=== PATIENT | female | born 1960 | race African-American/Black ===

== ENCOUNTER 2017-08-12 05:09 | Emergency (ER) | payer OTHER ==
[~2017-08-12 05:09] MED LIST: HYDR-3533 PO; IBUP-232 PO; LISI-586 PO; LISI40TA PO; ROBA750T PO; ROBA750T3 PO; SYMB80AE INH
[2017-08-12 05:12] VITALS: BP 184/86; PULSE 82; RESP 18; TEMP 98.2; O2SAT 98
[2017-08-12] MEDS ORDERED: methylPREDNISolone SOD SUCC 125 MG/2 ML VIAL IV PUSH ONE (05:45)
[2017-08-12] MEDS ORDERED: RESP: ALBUTEROL 2.5 MG/IPRATROPIUM 0.5 MG NEB (SCH) NEB ONE (05:45)
[2017-08-12 06:02] VITALS: O2SAT 98
[2017-08-12 06:12] LABS: BASOPHIL # 0.1 TH/MM3 (0-0.2); BASOPHIL % 1.1 % (0.0-2.0); EOSINOPHIL # 0.2 TH/MM3 (0-0.4); EOSINOPHIL % 3.3 % (0.0-4.0); HEMATOCRIT 34.2 % (35.0-46.0); HEMOGLOBIN 11.4 GM/DL (11.6-15.3); LYMPH % 42.7 % (9.0-44.0); LYMPHOCYTE # 2.1 TH/MM3 (1.0-4.8); MEAN CELL VOLUME 94.3 FL (80.0-100.0); MEAN CORPUSCULAR HEMOGLOBIN 31.5 PG (27.0-34.0); MEAN CORPUSCULAR HGB CONC 33.4 % (32.0-36.0); MONO % 11.9 % (0.0-8.0); MONOCYTE # 0.6 TH/MM3 (0-0.9); PLATELET COUNT 233 TH/MM3 (150-450); RED BLOOD COUNT 3.63 MIL/MM3 (4.00-5.30); RED CELL DISTRIBUTION WIDTH 13.8 % (11.6-17.2); WHITE BLOOD COUNT 4.9 TH/MM3 (4.0-11.0)
[2017-08-12 06:27] LABS: INTERNATIONAL NORMALIZED RATIO 1.1 RATIO; PROTHROMBIN TIME - PATIENT 11.5 SEC (9.8-11.6)
[2017-08-12 06:36] LABS: ALBUMIN 3.4 GM/DL (3.4-5.0); AST (GOT) 18 U/L (15-37); BICARBONATE 20.9 MEQ/L (21.0-32.0); BLOOD UREA NITROGEN 20 MG/DL (7-18); CALCIUM 9.2 MG/DL (8.5-10.1); CHLORIDE 108 MEQ/L (98-107); CREATININE 1.26 MG/DL (0.50-1.00); GLOMERULAR FILTRATION RATE 53 ML/MIN (>89); GLUCOSE,RANDOM 110 MG/DL (74-106); MAGNESIUM 2.2 MG/DL (1.5-2.5); SODIUM (NA) 141 MEQ/L (136-145)
[2017-08-12 06:38] LABS: ALT (GPT) 19 U/L (10-53)
[2017-08-12 06:41] LABS: ALKALINE PHOSPHATASE 75 U/L (45-117); TOTAL BILIRUBIN ADULT 0.6 MG/DL (0.2-1.0); TOTAL PROTEIN 7.5 GM/DL (6.4-8.2); TROPONIN I 0.02 NG/ML (0.02-0.05)
[2017-08-12] MEDS ORDERED: IOHEXOL 350 MG/ML 10 ML VIAL (for RAD DIAG) IVCONTRAST ONE (07:15)
--- NOTE | 2017-08-12 07:28 | PD ---
HPI Chief Complaint: Respiratory Symptoms Time Seen by Provider: 05:29 Travel History International Travel<30 days: No Contact w/Intl Traveler<30days: No Traveled to known affect area: No History of Present Illness HPI The patient is a 56 year old female who presents to the [facility] emergency department with a history of beginning to suddenly cough prior to arrival while she was sleeping. The cough woke her up. She reports that she then spent out some fluid that was blood-tinged. She denies having any vomiting. She reports having history of asthma. She had an episode of wheezing and shortness of breath and used her rescue inhaler x1 yesterday. She reports that she infrequently uses her rescue inhaler. The patient reports a history of smoking. She reports smoking a few cigarettes per day. The patient reports a history of cocaine use. She last used cocaine over the weekend. She denies having any chest pain or chest pressure. She denies having any. She denies having any productive cough prior to this. She denies having any known she denies having any congestion. She does have a prior history of pulmonary embolism. She is chronically anticoagulated on Coumadin. Approximately a week ago she did come off of the Coumadin for a period of time in order to have multiple teeth extracted. She reports that she is currently back on the Coumadin. One ROS otherwise, the patient denies having any neck pain, abdominal pain, vomiting, diarrhea, urinary symptoms, or neurologic symptoms. [facility] Past Medical History Narrative Medical The patient's past medical history is significant for PE, chronic anticoagulation on Coumadin, history asthma, tobacco use, cocaine use, hypertension Hx Anticoagulant Therapy: Yes Arthritis: Yes Asthma: Yes Blood Disorders: Yes (BLOOD CLOT IN LUNG 2005) Anxiety: Yes Diminished Hearing: No Hypertension: Yes Inguinal Hernia: Yes Respiratory: Yes (ASTHMA) Menopausal: Yes : 4 Para: 2 Ovarian Cysts: Yes Past Surgical History Narrative Surgical The patient's past surgical history is significant for umbilical hernia repair, shoulder sx. Abdominal Surgery: Yes (unbilical hernia) Joint Replacement: Yes (right shoulder) Social History Alcohol Use: Yes (3 BEERS A WEEK) Tobacco Use: Yes (1 PACK A MONTH ) Substance Use: Yes (cocaine use over last weekend) Allergies-Medications (Allergen,Severity, Reaction): Coded Allergies: Sulfa (Sulfonamide Antibiotics) (Unverified Allergy, Severe, Swelling, 08/12) ampicillin (Unverified Allergy, Severe, Swelling, 08/12/17) cephalexin (Unverified Allergy, Severe, 08/12/17) penicillin G (Unverified Allergy, Severe, Swelling, 08/12/17) latex (Unverified Allergy, Intermediate, Swelling, 08/12/17) aspirin (Unverified Allergy, Mild, Swelling, 08/12/17) Reported Meds & Prescriptions Reported Meds & Active Scripts Active Proair Hfa 8.5 GM Inh (Albuterol Sulfate) 90 Mcg/Act Aer 2 Puff INH Q4-6H PRN 108 mcg/actuation Prednisone 20 Mg Tab 20 Mg PO BID 5 Days Azithromycin 500 Mg Tab 500 Mg PO DAILY Robaxin (Methocarbamol) 750 Mg Tab 1,500 Mg PO TID Lortab (Hydrocodone-Acetaminophen) 5-325 Mg Tab 1 Tab PO Q6H PRN Ibuprofen 600 Mg Tab 600 Mg PO Q6H PRN Zestoretic 20/12.5 (Lisinopril/Hctz 20 mg/12.5 mg) 20 Mg/12.5 Mg Tab 1 Tab PO BID 30 Days Robaxin-750 (Methocarbamol) 750 Mg Tab 1,500 Mg PO TID PRN Reported Symbicort (Budesonide/Formoterol Fumarate) 80 Mcg/4.5 Mcg Aer 2 Puff INH BID * SHAKE WELL BEFORE USE * Prinivil 40 mg (Lisinopril) 40 Mg Tab 1 Tab PO DAILY Review of Systems Except as stated in HPI: all other systems reviewed are Neg General / Constitutional: No: Fever Eyes: No: Visual changes HENT: Positive: Sore Throat, Neck Pain, No: Headaches, Neck Stiffness Cardiovascular: No: Chest Pain or Discomfort Respiratory: Positive: Cough, Shortness of Breath, Wheezing, Hemoptysis Gastrointestinal: No: Abdominal Pain Genitourinary: No: Dysuria Musculoskeletal: No: Pain Skin: No Rash Neurologic: No: Weakness Psychiatric: No: Depression Endocrine: No: Polydipsia Hematologic/Lymphatic: No: Easy Bruising Physical Exam Narrative General: The patient is a well-developed well-nourished female in no acute distress. Head and Neck exam: Head is normocephalic atraumatic. Eyes: EOMI, pupils are equal round and reactive to light. Nose: Midline septum with pink mucous membranes Mouth: Dentition unremarkable. Moist mucus membranes. Posterior oropharynx is not erythematous, except on the patient's uvula. The patient's uvula is noted to be in midline, mildly edematous. On the right side of the uvula the patient is noted to have an area of what appears to be recent bleeding. No tonsillar hypertrophy. Airway patent. Neck: No palpable lymphadenopathy. No nuchal rigidity. No thyromegaly. Cardiovascular: Regular rate and rhythm without murmurs, gallops, or rubs. No pulse deficit to the extremities on simultaneous auscultation and palpation of her radial artery. Lungs: Clear to auscultation bilaterally. No wheezes, rhonchi, or rales. Abdomen: Soft, without tenderness to palpation in all 4 quadrants of the abdomen. No guarding, rebound, or rigidity. Normal bowel sounds are audible. No tenderness on palpation of McBurney's point. Extremities: No clubbing, cyanosis, or edema. 2+ pulses in all 4 extremities. No calf tenderness on palpation. Back: No spinous process tenderness to palpation. No costovertebral angle tenderness to palpation. Neurologic Exam: Grossly nonfocal. Skin Exam: No rash noted. Intact skin that is warm and dry. Data Data Last Documented VS Vital Signs Date Time Temp Pulse Resp B/P (MAP) Pulse Ox O2 Delivery O2 Flow Rate FiO2 08/12/17 10:00 64 16 97 Room Air 08/12/17 06:02 21 08/12/17 05:12 98.2 184/86 (118) Orders Orders Complete Blood Count With Diff (08/12/17 05:30) Comprehensive Metabolic Panel (08/12/17 05:30) Creatine Kinase (Cpk) (08/12/17 05:30) Ckmb (Isoenzyme) Profile (08/12/17 05:30) Troponin I (08/12/17 05:30) B-Type Natriuretic Peptide (08/12/17 05:30) Prothrombin Time / Inr (Pt) (08/12/17 05:30) Act Partial Throm Time (Ptt) (08/12/17 05:30) Lipase (08/12/17 05:30) Magnesium (Mg) (08/12/17 05:30) Iv Access Insert/Monitor (08/12/17 05:30) Ecg Monitoring (08/12/17 05:30) Oximetry (08/12/17 05:30) Ct Pulmonary Angiogram (08/12/17 05:30) Methylprednisolone So Succ Inj (Solumedr (08/12/17 05:45) Albuterol-Ipratropium Neb (Duoneb Neb) (08/12/17 05:45) CKMB (08/12/17 06:05) CKMB% (08/12/17 06:05) Iohexol 350 Inj (Omnipaque 350 Inj) (08/12/17 07:15) Electrocardiogram (08/12/17 05:55) Acetaminophen (Tylenol) (08/12/17 09:30) Azithromycin (Zithromax) (08/12/17 09:30) Ed Discharge Order (08/12/17 10:16) Labs Laboratory Tests Test 08/12/17 06:05 White Blood Count 4.9 TH/MM3 Red Blood Count 3.63 MIL/MM3 Hemoglobin 11.4 GM/DL Hematocrit 34.2 % Mean Corpuscular Volume 94.3 FL Mean Corpuscular Hemoglobin 31.5 PG Mean Corpuscular Hemoglobin Concent 33.4 % Red Cell Distribution Width 13.8 % Platelet Count 233 TH/MM3 Mean Platelet Volume 8.0 FL Neutrophils (%) (Auto) 41.0 % Lymphocytes (%) (Auto) 42.7 % Monocytes (%) (Auto) 11.9 % Eosinophils (%) (Auto) 3.3 % Basophils (%) (Auto) 1.1 % Neutrophils # (Auto) 2.0 TH/MM3 Lymphocytes # (Auto) 2.1 TH/MM3 Monocytes # (Auto) 0.6 TH/MM3 Eosinophils # (Auto) 0.2 TH/MM3 Basophils # (Auto) 0.1 TH/MM3 CBC Comment DIFF FINAL Differential Comment Prothrombin Time 11.5 SEC Prothromb Time International Ratio 1.1 RATIO Activated Partial Thromboplast Time 25.4 SEC Blood Urea Nitrogen 20 MG/DL Creatinine 1.26 MG/DL Random Glucose 110 MG/DL Total Protein 7.5 GM/DL Albumin 3.4 GM/DL Calcium Level 9.2 MG/DL Magnesium Level 2.2 MG/DL Alkaline Phosphatase 75 U/L Aspartate Amino Transf (AST/SGOT) 18 U/L Alanine Aminotransferase (ALT/SGPT) 19 U/L Total Bilirubin 0.6 MG/DL Sodium Level 141 MEQ/L Potassium Level 3.5 MEQ/L Chloride Level 108 MEQ/L Carbon Dioxide Level 20.9 MEQ/L Anion Gap 12 MEQ/L Estimat Glomerular Filtration Rate 53 ML/MIN Total Creatine Kinase 152 U/L Creatine Kinase MB 1.2 NG/ML Troponin I 0.02 NG/ML B-Type Natriuretic Peptide 218 PG/ML Lipase 172 U/L MDM Medical Decision Making Medical Screen Exam Complete: Yes Emergency Medical Condition: Yes Medical Record Reviewed: Yes Differential Diagnosis Recurrent pulmonary embolism, versus congestive heart failure, versus broken blood vessel the posterior oropharynx with bleeding, versus pneumonia Narrative Course During the course of the patient's emergency department visit, the patient's history, examination, and differential diagnosis were reviewed with the patient. The patient was placed on a monitor tech with oximetry and frequent blood pressure monitoring. The patient had IV access obtained and blood work sent for analysis. The patient had a EKG done on arrival. The patient's EKG shows a sinus rhythm heart rate 67, QRS duration 76 ms, QTC 466 ms. T waves are inverted in lead I, 2, aVL, V3, V4, V5, V6. No acute ST segment elevation. This is compared to a prior EKG done at this facility and is similar in appearance with the T-wave inversions noted previously on the EKG done January 08, 2011. The patient was initially provided a DuoNeb 1, Solu-Medrol 125 mg. The patient's laboratory studies were reviewed and remarkable for CBC & BMP Diagram 08/12/17 06:05 Total Protein 7.5, Albumin 3.4, Calcium Level 9.2, Magnesium Level 2.2, Alkaline Phosphatase 75, Aspartate Amino Transf (AST/SGOT) 18, Alanine Aminotransferase (ALT/SGPT) 19, Total Bilirubin 0.6. Cardiac enzymes within normal limits, BNP 218, lipase 172, INR is only 1.1 and not therapeutic The patient's case was checked out to the oncoming emergency physician to disposition based on the conclusion of the patient's workup. The patient CTA is pending. Diagnosis Primary Impression: Hemoptysis Scripts Albuterol 8.5 GM Inh (Proair Hfa 8.5 GM Inh) 90 Mcg/Act Aer 2 PUFF INH Q4-6H Y for SHORTNESS OF BREATH, #1 INHALER 0 Refills 108 mcg/actuation Prov: Poly Oscar DO 08/12/17 Prednisone (Prednisone) 20 Mg Tab 20 MG PO BID for 5 Days, #10 TAB 0 Refills Prov: Poly Oscar DO 08/12/17 Azithromycin (Azithromycin) 500 Mg Tab 500 MG PO DAILY for Infection, #5 TAB 0 Refills Prov: Poly Oscar DO 08/12/17 Jennifer Sebastian MD Aug 12, 2017 07:28
--- NOTE | 2017-08-12 07:40 | RADRPT ---
EXAM DATE: 08/12/2017 7:15 AM EDT AGE/SEX: 56 years / Female INDICATIONS: Shortness of breath, coughing up blood. CLINICAL DATA: This is the patient's initial encounter. Patient reports that signs and symptoms have been present for 1 day and indicates a pain score of 3/10. MEDICAL/SURGICAL HISTORY: Hypertension. None. RADIATION DOSE: 9.29 CTDI (mGy) COMPARISON: No prior [place] exams available for comparison. TECHNIQUE: Volumetric scanning was performed using a multi-row detector CT scanner during bolus infu moises of 74 ml Omnipaque 350 (iohexol) nonionic water-soluble contrast as a single exam dose. The sheri a was post processed with a variety of visualization algorithms including full volume maximum intensi ty projection and sliding thin slab reformation. Using automated exposure control and adjustment of the mA and/or kV according to patient size, radiation dose was kept as low as reasonably achievable t o obtain optimal diagnostic quality images. FINDINGS: There is no pulmonary embolus. 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 There is left ventricular hypertrophy . Coronary artery calcification. No infiltrate, effusion or pneumothorax. CONCLUSION: 1. No pulmonary embolus. 2. 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 The differential includes pulmonary hypertens ion and pulmonic valve stenosis. 3. Left ventricular hypertrophy. 4. Clear lungs. Electronically signed by: Taran Tejada MD 08/12/2017 7:39 AM EDT
[2017-08-12] MEDS ORDERED: AZITHROMYCIN 250 MG TAB PO ONE (09:30)
[2017-08-12] MEDS ORDERED: ACETAMINOPHEN 325 MG TAB PO ONE (09:30)
[2017-08-12 10:00] VITALS: PULSE 64; RESP 16; O2SAT 97
[2017-08-12] MEDS ORDERED: ALBUAER3 INH (10:08)
[2017-08-12] MEDS ORDERED: AZIT500T2 PO (10:08)
[2017-08-12] MEDS ORDERED: PRED20 PO (10:08)
--- NOTE | 2017-08-12 10:16 | PD ---
Physical Exam Date Seen by Provider: Aug 12, 2017 Data Data Last Documented VS Vital Signs Date Time Temp Pulse Resp B/P (MAP) Pulse Ox O2 Delivery O2 Flow Rate FiO2 08/12/17 10:00 64 16 97 Room Air 08/12/17 06:02 21 08/12/17 05:12 98.2 184/86 (118) Orders Orders Complete Blood Count With Diff (08/12/17 05:30) Comprehensive Metabolic Panel (08/12/17 05:30) Creatine Kinase (Cpk) (08/12/17 05:30) Ckmb (Isoenzyme) Profile (08/12/17 05:30) Troponin I (08/12/17 05:30) B-Type Natriuretic Peptide (08/12/17 05:30) Prothrombin Time / Inr (Pt) (08/12/17 05:30) Act Partial Throm Time (Ptt) (08/12/17 05:30) Lipase (08/12/17 05:30) Magnesium (Mg) (08/12/17 05:30) Iv Access Insert/Monitor (08/12/17 05:30) Ecg Monitoring (08/12/17 05:30) Oximetry (08/12/17 05:30) Ct Pulmonary Angiogram (08/12/17 05:30) Methylprednisolone So Succ Inj (Solumedr (08/12/17 05:45) Albuterol-Ipratropium Neb (Duoneb Neb) (08/12/17 05:45) CKMB (08/12/17 06:05) CKMB% (08/12/17 06:05) Iohexol 350 Inj (Omnipaque 350 Inj) (08/12/17 07:15) Electrocardiogram (08/12/17 05:55) Acetaminophen (Tylenol) (08/12/17 09:30) Azithromycin (Zithromax) (08/12/17 09:30) Labs Laboratory Tests Test 08/12/17 06:05 White Blood Count 4.9 TH/MM3 Red Blood Count 3.63 MIL/MM3 Hemoglobin 11.4 GM/DL Hematocrit 34.2 % Mean Corpuscular Volume 94.3 FL Mean Corpuscular Hemoglobin 31.5 PG Mean Corpuscular Hemoglobin Concent 33.4 % Red Cell Distribution Width 13.8 % Platelet Count 233 TH/MM3 Mean Platelet Volume 8.0 FL Neutrophils (%) (Auto) 41.0 % Lymphocytes (%) (Auto) 42.7 % Monocytes (%) (Auto) 11.9 % Eosinophils (%) (Auto) 3.3 % Basophils (%) (Auto) 1.1 % Neutrophils # (Auto) 2.0 TH/MM3 Lymphocytes # (Auto) 2.1 TH/MM3 Monocytes # (Auto) 0.6 TH/MM3 Eosinophils # (Auto) 0.2 TH/MM3 Basophils # (Auto) 0.1 TH/MM3 CBC Comment DIFF FINAL Differential Comment Prothrombin Time 11.5 SEC Prothromb Time International Ratio 1.1 RATIO Activated Partial Thromboplast Time 25.4 SEC Blood Urea Nitrogen 20 MG/DL Creatinine 1.26 MG/DL Random Glucose 110 MG/DL Total Protein 7.5 GM/DL Albumin 3.4 GM/DL Calcium Level 9.2 MG/DL Magnesium Level 2.2 MG/DL Alkaline Phosphatase 75 U/L Aspartate Amino Transf (AST/SGOT) 18 U/L Alanine Aminotransferase (ALT/SGPT) 19 U/L Total Bilirubin 0.6 MG/DL Sodium Level 141 MEQ/L Potassium Level 3.5 MEQ/L Chloride Level 108 MEQ/L Carbon Dioxide Level 20.9 MEQ/L Anion Gap 12 MEQ/L Estimat Glomerular Filtration Rate 53 ML/MIN Total Creatine Kinase 152 U/L Creatine Kinase MB 1.2 NG/ML Troponin I 0.02 NG/ML B-Type Natriuretic Peptide 218 PG/ML Lipase 172 U/L [facility] Medical Record Reviewed: Yes Supervised Visit with CEE: No Interpretation(s) Vital Signs Date Time Temp Pulse Resp B/P (MAP) Pulse Ox O2 Delivery O2 Flow Rate FiO2 08/12/17 10:00 64 16 97 Room Air 08/12/17 06:02 98 21 08/12/17 05:12 98.2 82 18 184/86 (118) 98 Narrative Course Patient sent out to me by Dr. Sebastian at change of shift. Patient pending CTA to rule out PE Patient is a 56-year-old female who presents the emergency room with complaints of cough while she was sleeping last night. Patient reports that she noticed that some of the fluid which she coughed up was blood-tinged, patient reports history of asthma and COPD, she is a smoker. She did use her rescue inhaler last night with no relief of symptoms. Reports remote history of PE which she is currently taking Coumadin. Reports that she stopped taking Coumadin last week as she had a dental procedure, she is currently resumed Coumadin yesterday. On reevaluation, patient is feeling much better at this time. She is complaining of a sore throat, she does have a uvula which is midline which is mildly edematous. It appears that her uvula has areas of what appears to be recent bleeding. Discussed with patient that she most likely has uvulitis and I did encourage her to increase her fluids. Patient is able to eat and drink and tolerate her own secretions without difficultly. Laboratory Tests Test 08/12/17 06:05 White Blood Count 4.9 TH/MM3 (4.0-11.0) Red Blood Count 3.63 MIL/MM3 (4.00-5.30) Hemoglobin 11.4 GM/DL (11.6-15.3) Hematocrit 34.2 % (35.0-46.0) Mean Corpuscular Volume 94.3 FL (80.0-100.0) Mean Corpuscular Hemoglobin 31.5 PG (27.0-34.0) Mean Corpuscular Hemoglobin Concent 33.4 % (32.0-36.0) Red Cell Distribution Width 13.8 % (11.6-17.2) Platelet Count 233 TH/MM3 (150-450) Mean Platelet Volume 8.0 FL (7.0-11.0) Neutrophils (%) (Auto) 41.0 % (16.0-70.0) Lymphocytes (%) (Auto) 42.7 % (9.0-44.0) Monocytes (%) (Auto) 11.9 % (0.0-8.0) Eosinophils (%) (Auto) 3.3 % (0.0-4.0) Basophils (%) (Auto) 1.1 % (0.0-2.0) Neutrophils # (Auto) 2.0 TH/MM3 (1.8-7.7) Lymphocytes # (Auto) 2.1 TH/MM3 (1.0-4.8) Monocytes # (Auto) 0.6 TH/MM3 (0-0.9) Eosinophils # (Auto) 0.2 TH/MM3 (0-0.4) Basophils # (Auto) 0.1 TH/MM3 (0-0.2) CBC Comment DIFF FINAL Differential Comment Prothrombin Time 11.5 SEC (9.8-11.6) Prothromb Time International Ratio 1.1 RATIO Activated Partial Thromboplast Time 25.4 SEC (24.3-30.1) Blood Urea Nitrogen 20 MG/DL (7-18) Creatinine 1.26 MG/DL (0.50-1.00) Random Glucose 110 MG/DL (74-106) Total Protein 7.5 GM/DL (6.4-8.2) Albumin 3.4 GM/DL (3.4-5.0) Calcium Level 9.2 MG/DL (8.5-10.1) Magnesium Level 2.2 MG/DL (1.5-2.5) Alkaline Phosphatase 75 U/L (45-117) Aspartate Amino Transf (AST/SGOT) 18 U/L (15-37) Alanine Aminotransferase (ALT/SGPT) 19 U/L (10-53) Total Bilirubin 0.6 MG/DL (0.2-1.0) Sodium Level 141 MEQ/L (136-145) Potassium Level 3.5 MEQ/L (3.5-5.1) Chloride Level 108 MEQ/L (98-107) Carbon Dioxide Level 20.9 MEQ/L (21.0-32.0) Anion Gap 12 MEQ/L (5-15) Estimat Glomerular Filtration Rate 53 ML/MIN (>89) Total Creatine Kinase 152 U/L (26-192) Creatine Kinase MB 1.2 NG/ML (0.5-3.6) Troponin I 0.02 NG/ML (0.02-0.05) B-Type Natriuretic Peptide 218 PG/ML (0-100) Lipase 172 U/L (73-393) Last Impressions CT Angiography 08/12/17 05 Signed Impressions: CONCLUSION: 1. No pulmonary embolus. 2. 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 The differential includ es pulmonary hypertension and pulmonic valve stenosis. 3. Left ventricular hypertrophy. 4. Clear lungs. EKG was reviewed which was similar to previous ekg's Plan to treat patient for COPD exacerbation. She will be given a copy of her lab work and studies at discharge and she will need further follow-up on her CT findings from today. She was instructed to drink plenty of fluids, signs and symptoms of when to return to the emergency room was reviewed patient detail. Diagnosis Primary Impression: COPD with exacerbation Additional Impressions: Uvulitis Pulmonary artery aneurysm Patient Instructions: General Instructions Additional Instruction: Please provide patient with a copy of their lab work and studies at discharge* * Please follow up with your primary care doctor in 2-3 days Return to the ER if symptoms worsen or progress Return to the ER as needed Please take your coumadin as prescribed Please drink plenty of fluids Med/Other Pt SpecificInfo: Prescription(s) given Scripts Albuterol 8.5 GM Inh (Proair Hfa 8.5 GM Inh) 90 Mcg/Act Aer 2 PUFF INH Q4-6H Y for SHORTNESS OF BREATH, #1 INHALER 0 Refills 108 mcg/actuation Prov: Poly Oscar DO 08/12/17 Prednisone (Prednisone) 20 Mg Tab 20 MG PO BID for 5 Days, #10 TAB 0 Refills Prov: Poly Oscar DO 08/12/17 Azithromycin (Azithromycin) 500 Mg Tab 500 MG PO DAILY for Infection, #5 TAB 0 Refills Prov: Poly Oscar DO 08/12/17 Disposition: 01 DISCHARGE HOME Condition: Stable Poly Oscar DO Aug 12, 2017 10:16
--- NOTE | 2017-08-12 17:06 | EKG ---
Date Performed: 08/12/2017 Time Performed: 05:55:30 PTAGE: 56 years EKG: Sinus rhythm POSSIBLE LEFT ATRIAL ENLARGEMENT LEFT VENTRICULAR HYPERTROPHY AND ST-T CHANGE ABNORMAL ECG Since the PREVIOUS TRACING , no significant change noted PREVIOUS TRACIN01/08/2011 12.46 DOCTOR: Monica Ramirez Interpretating Date/Time 08/12/2017 17:03:14
== END 2017-08-12 10:15 | disposition home or self-care (01) ==
LOC: NEPC 05:09
DX: J44.1 Chronic obstructive pulmonary disease with (acute) exacerbation (principal); K12.2 Cellulitis and abscess of mouth; I28.1 Aneurysm of pulmonary artery; R94.31 Abnormal electrocardiogram [ECG] [EKG]; I10 Essential (primary) hypertension; F41.9 Anxiety disorder, unspecified; Z86.711 Personal history of pulmonary embolism; F17.210 Nicotine dependence, cigarettes, uncomplicated; F14.90 Cocaine use, unspecified, uncomplicated
CPT/HCPCS: 71275; 80053; 82550; 82552; 83690; 83735; 83880; 84484; 85025; 85610; 85730; 93005; 94664; 96374; 99285; J2930; Q9967